=== PATIENT | female | born 1995 | race Caucasian/White ===

== ENCOUNTER 2022-01-14 14:33 | Outpatient (REF) | payer OTHER, SELFPAY ==
--- NOTE | ~2022-01-14 | US_ITS ---
EXAMINATION:US pelvic and transvaginal CLINICAL INFORMATION: Reason for Exam ABNORMAL UTERINE AND VAGINAL BLEEDING COMPARISON: No prior studies available for comparison. LMP: January 11, 2022 FINDINGS: UTERUS: The uterus is anteverted. Size: 6.7 x 3.5 x 4.5 cm. Uterine mass: There is no uterine mass. Cervix: Grossly unremarkable. Endometrium: No ultrasound evidence of endometrial lesion. endometrial thickness measures 0.6 cm ADNEXA: Normal Right ovary: Normal in size. Left ovary: Normal in size. Doppler exam: Normal Doppler flow identified in both ovaries. FREE FLUID: Trace amount of free fluid. OTHER FINDINGS: None US/US pelvic and transvaginal IMPRESSION: Normal pelvic ultrasound.
== END 2022-01-14 14:34 | disposition home or self-care (01) ==
LOC: HO.HMGCX 14:33
PROVIDERS: Visit Provider Emergency Medicine
DX: N93.9 Abnormal uterine and vaginal bleeding, unspecified (principal)
CPT/HCPCS: 76830; 76856

== ENCOUNTER → 2022-03-06 14:08 | Outpatient (BNVA) | payer OTHER, SELFPAY | PROVIDERS: PCP Family Medicine; Visit Provider Surgery Vascular Surgery | DX: I83.12 Varicose veins of left lower extremity with inflammation (principal) | CPT/HCPCS: 99212 ==

== ENCOUNTER 2022-05-05 13:08 | Outpatient (REF) | payer OTHER, SELFPAY ==
--- NOTE | ~2022-05-05 | US_ITS ---
EXAMINATION: US LOWER EXTREMITY VENOUS (REFLUX EXAM), BILATERAL CLINICAL INDICATION: This is a 26-year-old female with venous insufficiency and varicose veins. Varicose veins in the left lower extremity with inflammation. Leg swelling. COMPARISON: None. TECHNIQUE: Color flow triplex imaging and compression Doppler was performed to evaluate both the deep and the superficial systems bilaterally. To evaluate the superficial system, the examination was performed in the upright position. Color-flow Doppler ultrasound and compression ultrasound were utilized. In addition, maneuvers were utilized to demonstrate reflux. FINDINGS: 1. DEEP VENOUS ULTRASOUND OF THE RIGHT LOWER EXTREMITY: Common Femoral Vein: Compressible, normal respiratory variation and augmented flow. Femoral vein: Compressible, normal color flow and augmentation. Popliteal Vein: Compressible but with reflux of 956 ms. Deep Reflux: There is evidence of reflux in the deep system in either the common femoral vein or the popliteal vein. 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 There is no evidence of a Cruz's cyst. 2. SUPERFICIAL ULTRASOUND WITH DOPPLER OF RIGHT LOWER EXTREMITY: GREAT SAPHENOUS VEIN: Saphenofemoral Junction: 0.6 cm. There is no reflux. Mid Thigh: 0.2 cm. There is no reflux to Above Knee: 0.3 cm. There is no reflux. Below Knee: 0.2 cm. The reflux time is 3180 ms. Mid Calf: 0.1 cm. There is no reflux. Ankle: 0.2 cm. There is no reflux. GSV REFLUX: There is isolated reflux below the knee but no reflux at the junction. DUPLICATED GREAT SAPHENOUS VEIN: There is a 0.2 cm duplicated lateral great saphenous vein without reflux. SMALL SAPHENOUS VEIN: Proximal: 0.3 cm Distal: 0.1 cm SSV REFLUX: No evidence of reflux. VEIN OF GIACOMINI: None Imaged. PERFORATORS: There are 0.2 cm mid thigh and mid calf, respectively, perforators without reflux. VARICOSITIES: None Imaged 3. DEEP VENOUS ULTRASOUND OF THE LEFT LOWER EXTREMITY: Common Femoral Vein: Compressible, normal respiratory variation and augmented flow. Femoral Vein: Compressible, normal color flow and augmentation. Popliteal Vein: Compressible, normal augmentation. 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 Deep Reflux: There is no evidence of reflux in the deep system in either the common femoral vein or the popliteal vein. There is no evidence of a Cruz's cyst. 4. SUPERFICIAL ULTRASOUND WITH DOPPLER OF LEFT LOWER EXTREMITY: GREAT SAPHENOUS VEIN: Saphenofemoral Junction: 0.5 cm. There is no reflux. Proximal thigh: 0.4 cm. The reflux time is 2540 ms. Mid Thigh: 0.3 cm. The reflux time is 2180 ms. Above Knee: 0.3 cm. There is no reflux. Below Knee: 0.2 cm. The reflux time is 3204 ms. Mid Calf: 0.1 cm. The reflux time is 2928 ms. Ankle: 0.2 cm. The reflux time is 3148 ms. GSV REFLUX: There is reflux in the proximal thigh and extending down below the knee. DUPLICATED GREAT SAPHENOUS VEIN: There is a 0.2 cm duplicated lateral great saphenous vein without reflux. SMALL SAPHENOUS VEIN: Proximal: 0.2 cm Distal: 0.1 cm SSV REFLUX: No evidence of reflux. VEIN OF GIACOMINI: None Imaged. PERFORATORS: None Imaged VARICOSITIES: There are 0.5 cm mid thigh varicose veins with 2872 ms of reflux. There are 0.2 cm proximal calf varicose veins with 2760 ms of reflux. US/US venous duplex LE BI IMPRESSION: 1. There is a patent right great saphenous vein without reflux at the junction. 2. There is a patent right small saphenous vein without reflux at the junction. 3. There is a patent left great saphenous vein with reflux in the proximal thigh. 4. There is a patent left small saphenous vein without reflux. 5. There are varicose veins with reflux as described on the left.
== END 2022-05-05 13:09 | disposition home or self-care (01) ==
LOC: HO.US 13:08
PROVIDERS: Visit Provider Surgery Vascular Surgery
DX: I83.12 Varicose veins of left lower extremity with inflammation (principal)
CPT/HCPCS: 93970

== ENCOUNTER → 2022-05-13 13:44 | Outpatient (BNVA) | payer OTHER, SELFPAY | PROVIDERS: PCP Family Medicine; Visit Provider Surgery Vascular Surgery | DX: I83.12 Varicose veins of left lower extremity with inflammation (principal) | CPT/HCPCS: 99212 ==

== ENCOUNTER → 2022-09-05 07:39 | Outpatient (BNVA) | payer OTHER, SELFPAY | PROVIDERS: PCP Family Medicine; Visit Provider Surgery Vascular Surgery | DX: I83.12 Varicose veins of left lower extremity with inflammation (principal) | CPT/HCPCS: 37765 ==

== ENCOUNTER 2022-10-24 13:57 | Emergency (ER) | payer OTHER, SELFPAY ==
--- NOTE | ~2022-10-24 | US_ITS ---
EXAMINATION: US VENOUS ULTRASOUND WITH DOPPLER LOWER EXTREMITY, LEFT CLINICAL INFORMATION: Left lower extremity pain COMPARISON: None available. TECHNIQUE: Ultrasound of the deep veins is performed from the hip to the calf with compression sonography and color and pulse Doppler assessment. Spectral analysis with color-flow imaging is performed. FINDINGS: There is normal venous compression and respiratory variation and augmented flow. The visualized common femoral vein, superficial femoral vein, profunda femoral vein, popliteal vein, and the trifurcation region shows no evidence of deep venous thrombosis. There is no significant popliteal fossa cyst. If the patient's symptoms persist, followup ultrasound in 5 days 7 days might be of value to exclude proximal propagation from a non-visualized calf vein. US/US venous duplex LE LT IMPRESSION: No DVT demonstrated in the left lower extremity.
[2022-10-24 14:10] VITALS: BP 138/84; PULSE 90; RESP 18; TEMP 36.8; O2SAT 98; BMI 25.7
--- NOTE | 2022-10-24 14:13 | ED_ITS ---
HPI - General Adult General Chief complaint: Extremity Problem <Robinson Lemus - Last Filed: 10/24/22 14:14> Stated complaint: L Leg Pain S/P Surgery 09/05/22 <Robinson Lemus - Last Filed: 10/24/22 14:14> Time Seen by Provider: 10/24/22 16:59 <Robinson Lemus - Last Filed: 10/24/22 14:14> History of Present Illness HPI narrative: Patient complains of pain at the site of a vein stripping procedure that was done in September of this year around medial left knee Pain has been mild since the procedure but she thinks it is worse in the last several days in the area, she feels like it is mildly swollen but denies any fever no shortness of breath no calf swelling, denies any redness or rash, denies any difficulty walking or bending the knee <CARRIE Meneses - Last Filed: 10/26/22 13:10> Related Data Home medications: Home Medications Medication Instructions Recorded Confirmed levonorgestrel 0.15 mg-ethinyl 1 tab PO DAILY 09/05/22 estradiol 0.03 mg tablet Previous Rx's Medication Instructions Recorded ibuprofen 600 mg tablet 600 mg PO Q6H PRN pain #20 tabs 10/24/22 <Robinson Lemus - Last Filed: 10/24/22 14:14> Allergies/adverse reactions: Allergies Allergy/AdvReac Type Severity Reaction Status Date / Time amoxicillin Allergy Hives Unverified 10/24/22 12:43 <Robinson Lemus - Last Filed: 10/24/22 14:14> [facility] Past Medical History Source: nursing notes reviewed <CARRIE Meneses - Last Filed: 10/26/22 13:10> Social History Social History: Social History Patient Tobacco Use Status: Never used Tobacco Advance Directives: No Advance Directives Information Provided: No <Robinson Lemus - Last Filed: 10/24/22 14:14> Physical Exam ED Vital Signs: Vital Signs - 24 hr 10/24/22 14:10 10/24/22 17:36 Temperature 98.2 F 96.0 F L Pulse Rate 90 72 Respiratory Rate 18 16 Blood Pressure 138/84 140/87 H Pulse Oximetry 98 98 Oxygen Delivery Method Room Air Room Air BMI result Body Mass Index 25.7 <Robinson Lemus - Last Filed: 10/24/22 14:14> Vital Signs - 24 hr 10/24/22 14:10 10/24/22 17:36 Temperature 98.2 F 96.0 F L Pulse Rate 90 72 Respiratory Rate 18 16 Blood Pressure 138/84 140/87 H Pulse Oximetry 98 98 Oxygen Delivery Method Room Air Room Air BMI result Body Mass Index 25.7 <CARRIE Meneses - Last Filed: 10/26/22 13:10> General appearance is no acute distress Head is normocephalic atraumatic Neck is supple Respiratory no distress Extremities full range of motion x4 including left lower extremity The left lower extremity has no redness or warmth, the knee is not swollen or red she can flex and extend at the knee and is neurovascular intact distal, the medial knee has suture holes and some mild ecchymosis as well as some very minimal swelling around the sutures there is no redness no warmth no discharge , there is mild tenderness around the surgical site tenderness no obvious prominent vein, no red or swollen vein no lymphangitis no pedal edema , there is no dehiscence of the wound no stitch abscesses There is some tenderness in the posterior knee area There is no swelling or tenderness in the calf area <CARRIE Meneses - Last Filed: 10/26/22 13:10> Course Course Course Narrative: ABELARDO- 27-year-old female presents for evaluation of left leg pain and swelling. Patient reports having had a venous stripping procedure with Dr. Stephenson on 09/05/2022. Patient was sent from urgent care <Robinson Lemus - Last Filed: 10/24/22 14:14> JUNAIDE- 27-year-old female presents for evaluation of left leg pain and swelling. Patient reports having had a venous stripping procedure with Dr. Stephenson on 09/05/2022. Patient was sent from urgent care Ultrasound was negative for DVT There is no sign of skin infection or phlebitis now She is advised to follow with her vascular surgeon for re-evaluation to learn more about the course of wound healing after this type of procedure She is well-appearing ambulates easily and is discharged <CARRIE Meneses - Last Filed: 10/26/22 13:10> Discharge Plan Discharge Clinical Impression: Left leg pain <Robinson Lemus - Last Filed: 10/24/22 14:14> Patient Disposition: Home, Self-Care <Robinson Allan - Last Filed: 10/24/22 14:14> Additional Instructions: Ultrasound of the left leg was negative for blood clot Exam of the skin in the area did not show any evidence of skin infection Pulses were good, circulation looks good No sign of any dangerous or emergent condition now Best plan is to follow with the surgeon for a post procedure visit to get an idea of whether this is normal wound healing Return any turn for increased pain and swelling, redness, discharge from wound, any worse condition or any concerns <Robinson Lemus - Last Filed: 10/24/22 14:14> Prescriptions: New ibuprofen 600 mg tablet 600 mg PO Q6H PRN (Reason: pain) Qty: 20 0RF No Action levonorgestrel-ethinyl estrad 0.15-0.03 mg tablet 1 tab PO DAILY <Robinson Lemus - Last Filed: 10/24/22 14:14> Stand Alone Forms: Work/School Release <Robinson Lemus - Last Filed: 10/24/22 14:14> Interventions: ED Discharge Assessment Last Done: 10/24/22 18:32 <Robinson Lemus - Last Filed: 10/24/22 14:14> Discharge Date/Time: 10/24/22 18:33 <Robinson Lemus - Last Filed: 10/24/22 14:14>
[2022-10-24 17:36] VITALS: BP 140/87; PULSE 72; RESP 16; TEMP 35.6; O2SAT 98
== END 2022-10-24 18:33 | disposition home or self-care (01) ==
PROVIDERS: Emergency Provider Emergency Medicine; PCP Family Medicine
DX: M79.605 Pain in left leg (principal); R60.0 Localized edema
CPT/HCPCS: 93971; 99282; 99284

== ENCOUNTER → 2022-11-04 09:55 | Outpatient (BNVA) | payer OTHER, SELFPAY | PROVIDERS: PCP Family Medicine; Visit Provider Surgery Vascular Surgery | DX: I83.12 Varicose veins of left lower extremity with inflammation (principal) | CPT/HCPCS: 99212 ==

== ENCOUNTER 2023-10-14 16:18 | Outpatient (REF) | payer OTHER, SELFPAY ==
[2023-10-15 06:08] LABS: CT PCR NOT DETECTED (Not Detect.); NG PCR NOT DETECTED (Not Detect.)
== END 2023-10-14 16:19 | disposition home or self-care (01) ==
LOC: HO.CHCLNP 16:18
PROVIDERS: Visit Provider Family Medicine
DX: Z11.3 Encounter for screening for infections with a predominantly sexual mode of transmission (principal)
CPT/HCPCS: 0353U

== ENCOUNTER 2023-11-17 | Outpatient (REF) | payer OTHER, SELFPAY ==
[2023-11-24 06:09] LABS: C. trachomatis RNA TMA NOT DETECTED (NOT DETECTED); N. gonorrhoeae RNA TMA NOT DETECTED (NOT DETECTED)
[2023-11-24 14:12] LABS: Trichomonas (NAAT) NOT DETECTED (NOT DETECTED)
== END 2023-11-17 00:01 | disposition home or self-care (01) ==
LOC: HO.HHCLNP
PROVIDERS: Visit Provider Family Medicine
DX: Z01.419 Encounter for gynecological examination (general) (routine) without abnormal findings (principal)
CPT/HCPCS: 36415; 87491; 87591; 87661; 88142

== ENCOUNTER 2024-01-29 12:01 | Outpatient (REF) | payer OTHER, SELFPAY ==
--- NOTE | ~2024-01-29 | XR_ITS ---
EXAMINATION: XR FOOT, RIGHT CLINICAL INFORMATION: Injury COMPARISON: None available. TECHNIQUE: AP, lateral, and oblique views of the right foot. FINDINGS: Punctate ossific focus along the dorsal margin of the anterior talus measuring less than 2 mm nonspecific though may reflect sequela of remote trauma. Correlation with point tenderness. Joint space alignment otherwise maintained. Soft tissues are unremarkable. XR/XR foot RT min 3V IMPRESSION: Punctate ossific focus along the dorsal margin of the anterior talus measuring less than 2 mm nonspecific though may reflect sequela of remote trauma. Correlation with point tenderness.
== END 2024-01-29 12:02 | disposition home or self-care (01) ==
LOC: HO.HHCX 12:01
PROVIDERS: Visit Provider Nurse Practitioner Family
DX: M79.671 Pain in right foot (principal)
CPT/HCPCS: 73630